=== PATIENT | female | born 1980 | race Two or more races ===

== ENCOUNTER → 2022-07-04 | Outpatient (CLI) | payer SELFPAY ==
--- NOTE | 2022-07-04 14:47 | BI_ITS ---
MAMMOGRAPHY - BILATERAL SCREENING REASON FOR EXAM: Female, 41 years old. Routine annual screening examination. PERTINENT HISTORY: Grandmother with breast cancer. TECHNIQUE: Digital bilateral breast sourav (3D mammographic acquisition) in the CC and MLO projections. 2-D mediolateral oblique (MLO) and craniocaudad (CC) views of both breasts were obtained. CAD: Full Field Digital Mammography with Computer Added Detection was performed. COMPARISON: None. Baseline examination. FINDINGS: Breast Composition: The breasts are heterogeneously dense, which may obscure small masses. There are no dominant masses or suspicious calcifications. No other significant abnormalities are identified. BI/SCRN MAMM (CAD)W/SOURAV BILAT IMPRESSION: Negative screening mammogram. Yearly followup mammogram recommended. (A) ASSESSMENT CATEGORY: BIRADS Category 1: Negative. A letter regarding these results will be sent to the patient by the facility within 30 days. Approximately 10% of breast cancers are not detected by mammography. A normal mammogram should not delay biopsy of a clinically suspicious abnormality. [id number] Electronically Signed: Obed Sprague MD at 15:28 EST ,
== END | disposition home or self-care (01) ==
LOC: OPBI 14:46
PROVIDERS: PCP Internal Medicine; Referring Provider Internal Medicine; Visit Provider Internal Medicine
DX: Z12.31 Encounter for screening mammogram for malignant neoplasm of breast (principal)
CPT/HCPCS: 77063; 77067

== ENCOUNTER → 2022-09-26 | Outpatient (CLI) | payer OTHER, SELFPAY ==
[2022-09-26 12:35] LABS: Absolute Lymphocyte Count 2.67 X10^3/uL (0.83-4.51); Absolute Neutrophil Count 14.4 X10^3/uL (2.0-7.7); Basophil# 0.12 X10^3/uL; Basophil% 0.6 % (0-1); Eosinophil# 0.03 X10^3/uL; Eosinophils% 0.2 % (0-5); Hematocrit 42.3 % (37-47); Hemoglobin 13.7 g/dL (12.0-15.0); Lymphocyte # 2.67 X10^3/ul (0.83-4.51); Lymphocyte % 13.8 % (19-41); Mean Corp Hgb Conc 32.4 g/dL (32-36); Mean Corpuscular Hgb 29.3 pg (27.0-32.0); Mean Corpuscular Volume 90.4 fL (81-99); Mean Platelet Vol. 9.9 fl (6.2-12.0); Monocyte% 8.8 % (0-10); NRBC Flagged by Analyzer 0 % (0-5); Neutrophil # 14.39 X10^3/uL (2.7-7.7); Neutrophil % 74.3 % (47-70); POSITIVE DIFFERENTIAL YES; Platelet Count 494 K/mm3 (150-450); RBC Distribution Width CV 12.4 % (11.6-14.6); RBC Distribution Width SD 40.7 fl (35.1-43.9); Red Blood Count 4.68 M/mm3 (4.2-5.4); White Blood Count 19.4 K/mm3 (4.4-11.0)
[2022-09-26 12:36] LABS: Differential Indicated SCAN CRITERIA MET
[2022-09-26 13:03] LABS: AST(SGOT) 24 U/L (15-37); Alanine Aminotransfer ALT/SGPT 101 U/L (13-56); Albumin, Serum 3.7 g/dL (3.2-5.0); Alkaline Phosphatase 59 U/L (45-117); Anion Gap 8 (5-15); BUN 17 mg/dL (7-18); BUN/Creat Ratio 26.7 RATIO (10-20); Calcium,Total 9.6 mg/dL (8.5-10.1); Chloride 99 mmol/L (98-107); Cholesterol 171 mg/dL (200); Creatinine, Serum 0.64 mg/dL (0.55-1.02); EST Glomerular Filtration Rate 108 mL/min (>60); Est Glom Filt Rate - Afr Amer 130 mL/min (>60); Globulin 3.7 g/dL (2.2-4.2); Glucose 132 mg/dL (74-106); High Density Lipoprotein 55 mg/dL; Potassium 4.6 mmol/L (3.5-5.1); Protein, Total 7.4 g/dL (6.4-8.2); Sodium Level 134 mmol/L (136-145); Triglycerides 148 mg/dL; Very Low Density Lipoprotein 30 mg/dL (5-40)
[2022-09-27 12:56] LABS: Pathologist Review Reviewed
== END | disposition home or self-care (01) ==
PROVIDERS: PCP Internal Medicine; Referring Provider Internal Medicine; Visit Provider Internal Medicine
DX: Z13.6 Encounter for screening for cardiovascular disorders (principal); T78.40XA Allergy, unspecified, initial encounter
CPT/HCPCS: 36415; 80053; 80061; 85025

== ENCOUNTER → 2022-11-04 | Outpatient (CLI) | payer OTHER, SELFPAY ==
[2022-11-04 12:52] LABS: Hematocrit 40.5 % (37-47); Mean Corp Hgb Conc 32.1 g/dL (32-36); Mean Corpuscular Hgb 28.7 pg (27.0-32.0); Mean Corpuscular Volume 89.4 fL (81-99); Mean Platelet Vol. 10.6 fl (6.2-12.0); Platelet Count 374 K/mm3 (150-450); RBC Distribution Width CV 12.1 % (11.6-14.6); RBC Distribution Width SD 39.6 fl (35.1-43.9); Red Blood Count 4.53 M/mm3 (4.2-5.4)
[2022-11-04 13:17] LABS: Anion Gap 7 (5-15); BUN 12 mg/dL (7-18); BUN/Creat Ratio 18.4 RATIO (10-20); Calcium,Total 9.2 mg/dL (8.5-10.1); Chloride 103 mmol/L (98-107); Creatinine, Serum 0.65 mg/dL (0.55-1.02); EST Glomerular Filtration Rate 105 mL/min (>60); Est Glom Filt Rate - Afr Amer 127 mL/min (>60); Glucose 112 mg/dL (74-106); Potassium 4.2 mmol/L (3.5-5.1); Sodium Level 135 mmol/L (136-145)
[2022-11-07 10:39] LABS: AST(SGOT) 20 U/L (15-37); Alanine Aminotransfer ALT/SGPT 19 U/L (13-56); Albumin, Serum 3.8 g/dL (3.2-5.0); Alkaline Phosphatase 59 U/L (45-117); Bilirubin, Direct 0.16 mg/dL (0.00-0.30); Globulin 3.6 g/dL (2.2-4.2); Protein, Total 7.4 g/dL (6.4-8.2)
[2022-11-07 10:53] LABS: Hemoglobin A1c 6.3 % (3.8-5.6)
== END | disposition home or self-care (01) ==
LOC: BIMLAB 08:08
PROVIDERS: PCP Internal Medicine; Visit Provider Internal Medicine
DX: R74.01 Elevation of levels of liver transaminase levels (principal); D72.829 Elevated white blood cell count, unspecified; R73.09 Other abnormal glucose
CPT/HCPCS: 36415; 80048; 80076; 83036; 85027

== ENCOUNTER → 2023-08-11 | Outpatient (CLI) | payer OTHER, SELFPAY ==
[2023-08-11 16:44] LABS: Absolute Lymphocyte Count 2.79 X10^3/uL (0.83-4.51); Absolute Neutrophil Count 6.8 X10^3/uL (2.0-7.7); Basophil# 0.07 X10^3/uL; Basophil% 0.6 % (0-1); Eosinophil# 0.12 X10^3/uL; Eosinophils% 1.1 % (0-5); Hematocrit 41.1 % (37-47); Hemoglobin 13.2 g/dL (12.0-15.0); Lymphocyte # 2.79 X10^3/ul (0.83-4.51); Lymphocyte % 24.9 % (19-41); Mean Corp Hgb Conc 32.1 g/dL (32-36); Mean Corpuscular Hgb 27.9 pg (27.0-32.0); Mean Corpuscular Volume 86.9 fL (81-99); Mean Platelet Vol. 10.2 fl (6.2-12.0); Monocyte% 12.5 % (0-10); NRBC Flagged by Analyzer 0 % (0-5); Neutrophil # 6.78 X10^3/uL (2.7-7.7); Neutrophil % 60.5 % (47-70); Platelet Count 381 K/mm3 (150-450); RBC Distribution Width CV 12.4 % (11.6-14.6); RBC Distribution Width SD 39.7 fl (35.1-43.9); Red Blood Count 4.73 M/mm3 (4.2-5.4); White Blood Count 11.2 K/mm3 (4.4-11.0)
[2023-08-11 17:02] LABS: Hemoglobin A1c 5.9 % (3.8-5.6)
[2023-08-11 17:31] LABS: ALB/GLOB Ratio 1.1 RATIO (0.9-2.4); AST(SGOT) 17 U/L (15-37); Alanine Aminotransfer ALT/SGPT 18 U/L (13-56); Albumin, Serum 4.1 g/dL (3.2-5.0); Alkaline Phosphatase 72 U/L (45-117); Anion Gap 6 (5-15); BUN 11 mg/dL (7-18); Calcium,Total 9.2 mg/dL (8.5-10.1); Chloride 104 mmol/L (98-107); Creatinine, Serum 0.69 mg/dL (0.55-1.02); EST Glomerular Filtration Rate 98 mL/min (>60); Est Glom Filt Rate - Afr Amer 119 mL/min (>60); Estradiol 54.6 pg/mL; Follicle Stimulating Hormone 21.4 mIU/mL; Globulin 3.9 g/dL (2.2-4.2); Glucose 110 mg/dL (74-106); Luteinizing Hormone 13.3 mIU/mL; Potassium 3.7 mmol/L (3.5-5.1); Sodium Level 137 mmol/L (136-145)
== END | disposition home or self-care (01) ==
LOC: BIMLAB 15:28
PROVIDERS: PCP Internal Medicine; Visit Provider Nurse Practitioner
DX: Z00.00 Encounter for general adult medical examination without abnormal findings (principal); N92.6 Irregular menstruation, unspecified
CPT/HCPCS: 36415; 80053; 82670; 83001; 83002; 83036; 85025

== ENCOUNTER → 2023-08-18 | Outpatient (CLI) | payer OTHER, SELFPAY ==
[2023-08-24 09:08] LABS: HPV APTIMA, High Risk Negative (Negative)
== END | disposition home or self-care (01) ==
LOC: LABSPEC 15:56
PROVIDERS: PCP Internal Medicine; Referring Provider Nurse Practitioner; Visit Provider Nurse Practitioner
DX: Z12.4 Encounter for screening for malignant neoplasm of cervix (principal)
CPT/HCPCS: 87624; 88175; G0145

== ENCOUNTER 2023-09-14 14:57 | Outpatient (CLI) | payer OTHER, SELFPAY ==
--- NOTE | 2023-09-14 15:02 | US_ITS ---
STUDY: ULTRASOUND OF THE FEMALE PELVIS - LIMITED REASON FOR EXAM: Female, 43 years old irregular menses TECHNIQUE: Transabdominal and transvaginal TECHNICAL QUALITY: Adequate. COMPARISON: None. FINDINGS: The uterus is anteverted and is in a midline position. The uterus measures 9.4 x 4.5 x 3 cm. Normal uterine cervix. The endometrium measures 2.8 mm in thickness, and is hyperechoic. There is no demonstrated endometrial mass. There is no demonstrated myometrial mass. The right ovary measures 2.4 x 2.2 x 2.2 cm. There is no right ovarian cyst or ovarian mass. There is no visualized right adnexal mass or complex lesion. There is normal arterial and normal venous vascularity. The left ovary measures 3.5 x 3.2 x 3.6 cm. There is a cyst measuring 2.9 x 2.7 x 2.4 cm. There is no visualized left adnexal mass or complex lesion. There is normal arterial and normal venous vascularity. There is no fluid in the cul-de-sac. US/Pelvic w/ Transvaginal IMPRESSION: Small right ovarian cyst measuring 2.7 x 2.9 x 2.4 cm Electronically Signed: Rio Guaman MD at 22:29 EDT ,
--- NOTE | 2023-09-14 15:44 | BI_ITS ---
MAMMOGRAPHY - BILATERAL SCREENING REASON FOR EXAM: Female, 43 years old. Routine annual screening examination. PERTINENT HISTORY: Grandmother with breast cancer. TECHNIQUE: Digital bilateral breast sourav (3D mammographic acquisition) in the CC and MLO projections. 2-D mediolateral oblique (MLO) and craniocaudad (CC) views of both breasts were obtained. CAD: Full Field Digital Mammography with Computer Added Detection was performed. COMPARISON: Comparison is made with prior study dated July 04, 2022. FINDINGS: Breast Composition: The breasts are heterogeneously dense, which may obscure small masses. There are no dominant masses or suspicious calcifications. No other significant abnormalities are identified. There has been no significant change since the prior study. BI/SCRN MAMM (CAD)W/SOURAV BILAT IMPRESSION: Stable bilateral screening mammogram. Yearly follow-up mammogram recommended. (A) ASSESSMENT CATEGORY: BIRADS Category 1: Negative. A letter regarding these results will be sent to the patient by the facility within 30 days. Approximately 10% of breast cancers are not detected by mammography. A normal mammogram should not delay biopsy of a clinically suspicious abnormality. [id number] Electronically Signed: Obed Sprague MD at 16:13 EDT ,
== END 2023-09-14 23:59 | disposition home or self-care (01) ==
PROVIDERS: PCP Nurse Practitioner; Referring Provider Nurse Practitioner; Visit Provider Nurse Practitioner
DX: Z12.31 Encounter for screening mammogram for malignant neoplasm of breast (principal); N92.6 Irregular menstruation, unspecified
CPT/HCPCS: 76830; 76856; 77063; 77067

== ENCOUNTER → 2023-09-15 | Outpatient (CLI) | payer OTHER, SELFPAY ==
[2023-09-15 15:57] LABS: T4 Free Direct 0.91 ng/dL (0.76-1.46); Thyroid Stim Hormone (TSH) 0.82 uIU/mL (0.358-3.74)
[2023-09-22 09:09] LABS: T3 Reverse 18.8 ng/dL (9.2-24.1); Testosterone Free 0.8 pg/mL (0.0-4.2)
== END | disposition home or self-care (01) ==
LOC: BIMLAB 13:56
PROVIDERS: PCP Nurse Practitioner; Referring Provider Nurse Practitioner; Visit Provider Nurse Practitioner
DX: N92.6 Irregular menstruation, unspecified (principal)
CPT/HCPCS: 36415; 82627; 84402; 84439; 84443; 84482; 82626